=== PATIENT | male | born 1950 | race Caucasian/White ===

== ENCOUNTER 2023-05-23 08:32 | Emergency (ER) | payer MEDICARE, SELFPAY ==
[2023-05-23 08:44] VITALS: BP 180/103; PULSE 83; RESP 20; TEMP 36.6; O2SAT 97; BMI 31.3
[2023-05-23 09:13] LABS: Bacteria Urine None Seen; Culture Indicated Urine Cult Not Indicated; RBC Urine 0-1/HPF (0-5/HPF); Squamous Epithelial Cell Urine 5-10 /HPF (0-5/HPF); WBC Urine 0-1/HPF (0-5/HPF)
--- NOTE | 2023-05-23 09:14 | ED.BACK ---
HPI - Back Pain/Injury General Chief Complaint: Back Pain/Injury Stated Complaint: pain in LT side back Time Seen by Provider: 05/23/23 08:36 Source: patient Mode of arrival: Ambulatory Limitations: no limitations History of Present Illness HPI Narrative: This is a 73-year-old male with known coronary disease with cardiac stents x5, on aspirin, Plavix, metoprolol, losartan, HCTZ, rosuvastatin and metformin for diabetes. Patient presents with complaint of right flank pain. Patient normally wakes up at 3:30 a.m. in the morning he woke up at his usual time and had right flank pain that does not radiate to the front. He states it has not changed location. It has been constant it does not really get better or worse but has not resolved. He states he can not find a comfortable position. Patient states it does not radiate down his legs. He does not have any numbness, tingling or weakness. He states it is worse with movement. Patient states no loss of bowel or bladder control, no dysuria, urgency or frequency. No diarrhea constipation, no other GI or urinary symptoms. Patient denies any fevers. No nausea or vomiting. He states he has had kidney stones in the past he states this feels much worse but he is not sure that it feels similar. He states he is also had back issues in the past but also states it feels worse and not the same. Patient has taken aspirin at home for pain regularly but has not taken any other pain medications. He states he is had cardiac stents, he had skull fracture that required repair with surgical wire and he states there was a drill bit left behind when he was younger. No known drug allergies. He vapes tobacco, rare alcohol, no THC or illicit. Related Data Previous Rx's Medication Instructions Recorded oxycodone 5 mg tablet 5 mg PO Q6H PRN pain #10 tabs 05/23/23 Allergies Allergy/AdvReac Type Severity Reaction Status Date / Time No Known Drug Allergies Allergy Verified 05/23/23 08:52 Review of Systems Review of Systems ROS Unobtainable: All systems reviewed & are unremarkable except as noted in HPI and below Patient History Social History Smoking Status: Current every day smoker Smoking Status: Current every day smoker tobacco type: vaping Substance Use Type: does not use Exam Narrative Exam Narrative: GENERAL: Alert and oriented x three, male in mild distress. HEENT: Head normocephalic, atraumatic, EOMI, pupils reactive, face symmetric, moist mucous membranes NECK: Supple, full range of motion CARDIOVASCULAR: Regular rate and rhythm without murmurs, rubs or gallops. RESPIRATORY: Breath sounds equal bilaterally, no wheezes rales or rhonchi. ABDOMEN: Soft, nontender. Normoactive bowel sounds all 4 quadrants. No guarding or rebound, rigidity, no mass : No CVA tenderness BACK: No cervical, thoracic or lumbar vertebral point tenderness. Patient has normal range of motion. Patient's gait is normal. Muscle strength is 5/5 in lower extremities,Dorsalis pedis and tibialis pulses are 2+ and lower extremities. Sensation is intact in the lower extremities. EXTREMITIES: Normal range of motion, no clubbing or edema. Neurovascularly intact NEUROLOGICAL: Cranial nerves II through XII grossly intact. Moving all extremities SKIN: Warm, dry, no petechiae, no rashes or lesions. Initial Vital Signs Initial Vital Signs: Vital Signs Temperature 97.9 F 05/23/23 08:44 Pulse Rate 83 05/23/23 08:44 Respiratory Rate 20 05/23/23 08:44 Blood Pressure 180/103 H 05/23/23 08:44 Pulse Oximetry 97 05/23/23 08:44 Oxygen Delivery Method Room Air 05/23/23 08:44 Course Orders Ordered: Discontinued Medications Sodium Chloride (Normal Saline 0.9%) 1,000 mls @ 1,000 mls/hr IV BOLUS ONE Stop: 05/23/23 10:24 Last Admin: 05/23/23 09:52 Dose: 1,000 mls/hr Documented By: NR Ketorolac Tromethamine (Ketorolac 30 Mg/Ml Vial) 15 mg IV NOW ONE Stop: 05/23/23 09:25 Last Admin: 05/23/23 09:52 Dose: 15 mg Documented By: NR Morphine Sulfate (Morphine 4 Mg/Ml Inj) 4 mg IV NOW ONE Stop: 05/23/23 10:07 Last Admin: 05/23/23 10:15 Dose: 4 mg Documented By: RB Vital Signs Vital signs: Vital Signs - 8 hr 05/23/23 08:44 Temperature 97.9 F Pulse Rate 83 Respiratory Rate 20 Blood Pressure 180/103 H Pulse Oximetry 97 Oxygen Delivery Method Room Air MDM - Back Pain/Injury Lab Data 05/23/23 09:44 05/23/23 09:44 Labs: Lab Results 05/23/23 05/23/23 05/23/23 Range/Units 09:00 09:44 09:44 WBC 6.5 (4.5-11.0) X10^3/uL RBC 4.89 (4.5-5.9) X10^6/uL Hgb 15.4 (13.5-17.5) g/dL Hct 44.8 (41-53) % MCV 91.7 (80-100) fL MCH 31.6 (26-34) PG MCHC 34.5 (30-36) % RDW 13.5 (11.6-14.8) % Plt Count 214 (150-400) X10^3/uL Neut % (Auto) 76.7 H (50-75) % Lymph % (Auto) 15.3 L (25-40) % Evans % (Auto) 6.7 (3-14) % Eos % (Auto) 0.8 L (2-4) % Baso % (Auto) 0.5 (0-2) % Neut # (Auto) 5000 (5435-5407) /uL Lymph # (Auto) 1000 L (1212-1123) /uL Evans # (Auto) 400 (0-900) /uL Eos # (Auto) 100 (0-450) /uL Baso # (Auto) 0 (0-100) /uL Sodium 134 L (137-145) mmol/L Potassium 4.3 (3.4-5.1) mmol/L Chloride 100 (98-107) mmol/L Carbon Dioxide 26 (22-32) mmol/L BUN 13 (9-20) mg/dL Creatinine 0.43 L (0.66-1.25) mg/dL Estimated GFR > 60 (>60) mL/min BUN/Creatinine Ratio 30.2 H (6-22) Glucose 177 H (80-110) mg/dL Calcium 9.3 (8.4-10.2) mg/dL Total Bilirubin 1.0 (0.2-1.3) mg/dL AST 30 (17-59) IU/L ALT 31 (<50) IU/L Alkaline Phosphatase 78 (38-126) U/L Total Protein 7.9 (6.3-8.2) g/dL Albumin 4.7 (3.5-5.0) g/dL Globulin 3.2 (1.7-4.1) g/dL Albumin/Globulin Ratio 1.5 (1.0-2.8) Lipase 39 (23-300) U/L Urine RBC 0-1/hpf (0-5/HPF) Urine WBC 0-1/hpf (0-5/HPF) Ur Squamous Epith Cells 5-10 /hpf H (0-5/HPF) Urine Bacteria None seen (None) Ur Culture Indicated? Cult not indicated Urine Dip Bedside Urine Glucose 500 mg/dl Bedside Urine Bilirubin - Negative Bedside Urine Ketone ++ 40 Urine Specific [place] 1.030 Bedside Urine Occult Blood - Negative Bedside Urine pH 6.0 Bedside Urine Protein ++ 100 Bedside Urine Urobilinogen 0.2 Bedside Urine Nitrite - Negative Bedside Urine Leukocytes - Negative Esterase MDM Narrative Medical decision making narrative: 73-year-old male who has symptoms consistent with possible back pain worse with movement but not reproducible on exam. Patient also has had kidney stones. He has right flank pain urine shows glucose, ketones, protein but no blood, no nitrates or leukocyte esterase as well as some squamous epithelials present. Discussed with patient he states it feels more intense than prior kidney stones. He does appreciate that it is worse with movement but states he can not really find a comfortable position. Reviewed his urine findings and that this maybe back pain but still have some suspicion for kidney stone versus other cause. Patient is agreeable to further workup so labs, IV, pain medication and CT KUB was obtained. This shows no specific changes some mild bilateral perinephric stranding which is nonspecific. Some hepatic steatosis. Suspect more back pain patient today. Discussed return precautions patient's labs do not show any other clear source. Patient given pain medication, he feels improved. Return precautions discussed. Discharge Plan Departure Patient Disposition: Home Clinical Impression: Back pain Instructions: DI for Low Back Pain Activity Restrictions/Additional Instructions: Please follow-up with your physician if your symptoms are not resolving over the next week. Please continue your home medications as prescribed You may take Tylenol up to a 1000 mg every 6 hours and/or ibuprofen up to 600 mg every 6 hours. If in adequate for pain you can take oxycodone 1-2 tablets every 6 hours as needed for pain. This medication can make you sleepy do not drive, perform hazardous activities or make any major decisions while taking it. This medication will make you constipated please take a stool softener once to twice daily until stools are soft and regular. Prescription sent to [facility] in [place]. Please return for fevers, rapidly worsening pain new numbness, loss of sensation, inability to lift or move your legs, loss of bowel or bladder control or other new or concerning changes. Prescriptions: New oxycodone 5 mg tablet 5 mg PO Q6H PRN (Reason: pain) Qty: 10 0RF Referrals: Miscellaneous,Doctor, MD [Primary Care Provider] - Stand Alone Forms: Patient Portal/API, Work Release Note
--- NOTE | 2023-05-23 09:24 | DI.CT.S_ITS ---
PROCEDURE: CT KIDNEY URETER BLADDER (KUB) INDICATIONS: r flank TECHNIQUE: Axial sections were acquired from the lung bases to the pubic symphysis. Coronal and sagittal reformats were performed. For radiation dose reduction, the following was used: automated exposure control, adjustment of mA and/or kV according to patient size. COMPARISON: None. FINDINGS: Image quality: Excellent. Lung bases: Unremarkable. Small hiatal hernia. Heart: No significant findings. Moderate coronary artery atherosclerosis. URINARY: Right Kidney: No stones or hydronephrosis. Mild perinephric stranding. Right Ureter: No hydroureter. Left Kidney: No stones or hydronephrosis. Mild perinephric stranding. There is a 3 cm cyst exophytic cyst in left kidney. Left Ureter: No hydroureter. Bladder: Normal wall thickness. No stones. ABDOMEN: Liver: Normal size. Mild hepatic steatosis. There is a 1 cm indeterminate hepatic hypodensity, most likely a cyst. Gallbladder: Unremarkable. Biliary ducts: Unremarkable. Pancreas: Unremarkable. Spleen: Unremarkable. Adrenal Glands: Unremarkable. Stomach and Bowel: Stomach, small bowel loops, and colon are normal in caliber. Diverticulosis without diverticulitis. Peritoneum: No abnormal intraperitoneal fluid. No free air. Ventral Wall: No hernia. Abdominal Nodes: No enlarged retroperitoneal or mesenteric lymph nodes. Vessels: Aorta and inferior vena cava are normal in size. Moderate atherosclerotic calcifications. PELVIS: Pelvic Organs: Prostate is prominent. Pelvic Nodes: Unremarkable. Miscellaneous: Small fat containing inguinal hernias are seen. Bones: Unremarkable. Degenerative changes noted in lumbar spine. Large Schmorl's node in superior endplate of T12 and L4. IMPRESSION: 1. No urinary stones or hydronephrosis. Mild bilateral perinephric stranding, which is nonspecific. 2. Normal appendix. 3. Diverticulosis without diverticulitis. 4. Hepatic steatosis. Dictated by: Jong Valencia M.D. on 05/23/2023 at 9:41 Approved by: Jong Valencia M.D. on 05/23/2023 at 9:46
[2023-05-23 09:50] LABS: Add Manual Diff / Slide Review NO; Basophils Absolute Auto 0 /uL (0-100); Basophils Percent Auto 0.5 % (0-2); Eosinophils Absolute Auto 100 /uL (0-450); Eosinophils Percent Auto 0.8 % (2-4); Hematocrit 44.8 % (41-53); Hemoglobin 15.4 g/dL (13.5-17.5); Lymphocytes Absolute Auto 1000 /uL (1100-4500); Lymphocytes Percent Auto 15.3 % (25-40); Mean Corpuscular HGB Conc 34.5 % (30-36); Mean Corpuscular Hemoglobin 31.6 PG (26-34); Mean Corpuscular Volume 91.7 fL (80-100); Monocytes Absolute Auto 400 /uL (0-900); Monocytes Percent Auto 6.7 % (3-14); Neutrophils Absolute Auto 5000 /uL (1500-7000); Neutrophils Percent Auto 76.7 % (50-75); Platelet Count 214 X10^3/uL (150-400); Red Blood Cell Count 4.89 X10^6/uL (4.5-5.9); Red Cell Distribution Width 13.5 % (11.6-14.8); White Blood Cell Count 6.5 X10^3/uL (4.5-11.0)
[2023-05-23] MEDS: SODIUM CHLORIDE 0.9% 1,000 ML 1000 ML IV (09:52)
[2023-05-23] MEDS: KETOROLAC 30 MG/ML VIAL 15 MG IV (09:52)
[2023-05-23 10:02] LABS: Alanine Aminotransferase 31 IU/L (<50); Albumin 4.7 g/dL (3.5-5.0); Albumin Globulin Ratio 1.5 (1.0-2.8); Alkaline Phosphatase 78 U/L (38-126); Aspartate Aminotransferase 30 IU/L (17-59); BUN Creatinine Ratio 30.2 (6-22); Blood Urea Nitrogen 13 mg/dL (9-20); Calcium 9.3 mg/dL (8.4-10.2); Carbon Dioxide 26 mmol/L (22-32); Chloride 100 mmol/L (98-107); Estimated Glomerular Filt Rate > 60 mL/min (>60); Globulin 3.2 g/dL (1.7-4.1); Glucose 177 mg/dL (80-110); HEMOLYSIS 51 (0-50); Lipase 39 U/L (23-300); Potassium 4.3 mmol/L (3.4-5.1); Sodium 134 mmol/L (137-145); Total Protein 7.9 g/dL (6.3-8.2)
[2023-05-23] MEDS: MORPHINE 4 MG/ML INJ IV (10:15)
[2023-05-23 10:39] VITALS: BP 168/86; PULSE 82; RESP 19; O2SAT 99
== END 2023-05-23 10:40 | disposition home or self-care (01) ==
PROVIDERS: Emergency Provider Emergency Medicine
DX: M54.50 Low back pain, unspecified (principal)
CPT/HCPCS: 36415; 74176; 80053; 81003; 81015; 83690; 85025; 87077; 87086; 96374; 96375; 99284; J1885; J2270